=== PATIENT | female | born 1975 | race Caucasian/White ===

== ENCOUNTER 2018-03-09 11:35 | Emergency (ER) | payer MEDICARE ==
[~2018-03-09] VITALS: Ht 160 cm; Wt 59.1 kg
[2018-03-09 11:38] VITALS: Ht 160 cm; Wt 59.1 kg
[2018-03-09] MEDS ORDERED: LISINOPRIL10 MG PO (11:39)
[2018-03-09] MEDS ORDERED: XANAX2 MG PO (11:40)
[2018-03-09 12:16] LABS: BASOPHILS 0.5 % (0-2); EOSINOPHILS 2.7 % (0-7); HEMATOCRIT 37.7 % (36.0-48.0); HEMOGLOBIN 12.6 g/dL (12-16); IMMATURE GRANULOCYTES 0.2 % (0-5); MCH 31.3 pg (26.0-34.0); MCHC 33.4 g/dL (31.0-37.0); MCV 93.8 fL (80.0-100.0); MEAN PLATELET VOLUME 9.8 fL (7.4-10.4); MONOCYTES 5.7 % (2-11); NEUTROPHILS 50.9 % (40-80); PLATELET COUNT 282 10x3/uL (130-400); RBC 4.02 10x6/uL (4.00-5.40); WBC 6.3 10x3/uL (4.8-10.8)
[2018-03-09 12:17] LABS: HCG URINE NEGATIVE (NEGATIVE)
[2018-03-09 12:21] LABS: UDS - AMPHET POSITIVE QUAL (NEGATIVE); UDS - BARB NEGATIVE QUAL (NEGATIVE); UDS - BENZO POSITIVE QUAL (NEGATIVE); UDS - COCAINE NEGATIVE QUAL (NEGATIVE); UDS - OPIATE POSITIVE QUAL (NEGATIVE); UDS - PCP NEGATIVE QUAL (NEGATIVE); UDS - THC POSITIVE QUAL (NEGATIVE)
[2018-03-09 12:32] LABS: ALBUMIN 3.4 g/dL (3.4-5.0); ANION GAP 7.1 mmol/L (8-16); BILIRUBIN - TOTAL 0.3 mg/dL (0.2-1.3); CALCIUM 8.9 mg/dL (8.5-10.1); CARBON DIOXIDE 31.7 mmol/L (21.0-32.0); POTASSIUM - SERUM 3.8 mmol/L (3.5-5.1); PROTEIN - SERUM 6.8 g/dL (6.4-8.2)
[2018-03-09 12:33] LABS: APPEARANCE SLT CLOUDY (CLEAR); BACTERIA MANY /hpf (NONE SEEN); BILIRUBIN NEGATIVE (NEGATIVE); COLOR YELLOW (YELLOW); GLUCOSE NEGATIVE (NEGATIVE); KETONE NEGATIVE (NEGATIVE); MUCUS <1+ /lpf (NONE SEEN); NITRITE POSITIVE (NEGATIVE); PROTEIN TRACE mg/dL (NEGATIVE); RED CELLS - URINE 0-5 /hpf (0-5); SPECIFIC GRAVITY 1.025 (1.005-1.020); UROBILINOGEN NORMAL (NORMAL); WHITE CELLS - URINE 0-5 /hpf (0-5)
[2018-03-09 15:00] VITALS: BP 102/47
== END 2018-03-09 16:31 | disposition left against medical advice (07) ==
LOC: D.ER 11:35
PROVIDERS: Family Medicine
DX: R47.81 Slurred speech (principal); F19.90 Other psychoactive substance use, unspecified, uncomplicated; R53.1 Weakness; F41.9 Anxiety disorder, unspecified; F17.200 Nicotine dependence, unspecified, uncomplicated